=== PATIENT | female | born 1945 ===

== ENCOUNTER 2020-02-02 08:02 | Emergency (ER) | payer MEDICARE, OTHER, SELFPAY ==
[2020-02-02 08:11] VITALS: BP 159/84; PULSE 85; RESP 18; TEMP 36.8; O2SAT 100
--- NOTE | 2020-02-02 10:01 | ED.GENADULT ---
HPI - General Adult General Chief complaint: Unspecified Stated complaint: I want a covid test Time Seen by Provider: 02/02/20 08:19 History of Present Illness HPI narrative: Patient is a 74-year-old female who presents ER for Covid test. Patient is post to have brain surgery in a few days. The line to get a rapid Covid test was too long so she opted to drive here. She also did not realize that she could get her Covid test at the hospital where the original order was placed. She has no symptoms. Related Data Home Medications Medication Instructions Recorded Confirmed neomycin 3.5 mg-polymyxin 10,000 1 drop EACH EYE BID 02/07/19 01/30/20 unit-hydrocort 10 mg/mL eye drop,susp clopidogrel 75 mg tablet 75 mg PO DAILY 10/01/19 01/30/20 polyethylene glycol 3350 17 17 gm PO BID 10/01/19 01/30/20 gram/dose oral powder Allergies Allergy/AdvReac Type Severity Reaction Status Date / Time No Known Allergies Allergy Verified 02/02/20 08:14 Review of Systems Constitutional: Constitutional: Denies chills and Denies fever(s) Respiratory: Respiratory: Denies cough, Denies dyspnea and Denies wheezing PMFSH Past Medical History Medical History (Updated 02/02/20 @ 10:04 by Ashok Batres MD) CVA (cerebral vascular accident) Intracranial aneurysm with multiple congenital anomalies UTI (urinary tract infection) Family History Family History (Updated 08/22/18 @ 13:22 by DOCTOR UNKNOWN) Mother Patient's mother is , Onset Age: 82 Family history of dementia Father Acute myocardial infarction, Onset Age: 68 Social History Social History Smoking status: Former smoker Alcohol intake: never Exam Narrative: Exam Narrative: GENERAL: Well-appearing, well-nourished, and in no acute distress. HEAD: Normocephalic, atraumatic. EXTREMITIES: Normal range of motion. Normal strength. NEURO: Ambulates without issue. Alert and oriented x3. PSYCH: Normal mood and affect. Course Course Emergency Course: Patient swab for Covid. Discharge home. Vital Signs Vital signs: Vital Signs Temperature 98.2 F 02/02/20 08:11 Pulse Rate 85 02/02/20 08:11 Respiratory Rate 18 11/08/20 08:11 Blood Pressure 159/84 H 02/02/20 08:11 Pulse Oximetry 100 02/02/20 08:11 Temperature 98.2 F 02/02/20 08:11 Pulse Rate 85 02/02/20 08:11 Respiratory Rate 18 02/02/20 08:11 Blood Pressure 159/84 H 02/02/20 08:11 Pulse Oximetry 100 02/02/20 08:11 Medical Decision Making Vital Signs Vital Signs: Vital Signs Temperature 98.2 F 02/02/20 08:11 Pulse Rate 85 02/02/20 08:11 Respiratory Rate 18 02/02/20 08:11 Blood Pressure 159/84 H 02/02/20 08:11 Pulse Oximetry 100 02/02/20 08:11 Temperature 98.2 F 02/02/20 08:11 Pulse Rate 85 02/02/20 08:11 Respiratory Rate 18 02/02/20 08:11 Blood Pressure 159/84 H 02/02/20 08:11 Pulse Oximetry 100 02/02/20 08:11 Lab Data Labs: Lab Results 02/02/20 Range/Units 09:16 SARS-CoV-2 RNA (RT-PCR) Pending Discharge Plan Discharge Clinical Impression: Encounter for preprocedure screening laboratory testing for COVID-19 Patient Disposition: Home, Self-Care Condition: Stable Additional Instructions: You will need to call medical records to have your Covid results sent to your physician so that you can hopefully be cleared for surgery. Self quarantine at home until you receive your results. Prescriptions: No Action duloxetine [Cymbalta] 60 mg capsule,delayed release(DR/EC) 60 mg PO DAILY Qty: 90 RF: 3 zolpidem 10 mg tablet 10 mg PO .q hs PRN (Reason: insomnia) Qty: 90 RF: 1 levofloxacin 500 mg tablet 500 mg PO DAILY Qty: 5 RF: 0 famotidine 20 mg tablet 20 mg PO BID Qty: 180 RF: 3 clopidogrel [Plavix] 75 mg tablet 75 mg PO DAILY RF: 0 polyethylene glycol 3350 [Miralax] 17 gram/dose powder 17 g
[2020-02-02 21:18] LABS: SARS-CoV-2 RNA PCR Negative
== END 2020-02-02 10:09 | disposition home or self-care (01) ==
PROVIDERS: Emergency Provider Emergency Medicine; PCP Family Medicine
DX: Z01.812 Encounter for preprocedural laboratory examination (principal); Z20.828 Contact with and (suspected) exposure to other viral communicable diseases; Z86.73 Personal history of transient ischemic attack (TIA), and cerebral infarction without residual deficits; Z87.440 Personal history of urinary (tract) infections; Z87.891 Personal history of nicotine dependence
CPT/HCPCS: 87635; 99283; C9803; U0003

== ENCOUNTER 2021-10-29 09:55 | Outpatient (CLI) | payer MEDICARE, OTHER, SELFPAY | END 2021-10-29 09:56 | disposition home or self-care (01) | LOC: ANHLAB 09:58 | PROVIDERS: PCP Family Medicine; Visit Provider Nurse Practitioner Family | DX: Z22.322 Carrier or suspected carrier of Methicillin resistant Staphylococcus aureus (principal) | CPT/HCPCS: 87081 ==

== ENCOUNTER 2021-12-04 11:37 | Emergency (ER) | payer MEDICARE, OTHER, SELFPAY ==
[2021-12-04 11:44] VITALS: BP 135/92; PULSE 80; RESP 16; TEMP 36.9; O2SAT 97
--- NOTE | 2021-12-04 12:32 | ED.SKABFB ---
HPI - Skin/Abscess/Foreign Bdy General Chief complaint: Skin/Abscess/Foreign Body Stated complaint: SPIDER BITE Time Seen by Provider: 12/04/21 12:10 Source: patient, RN notes reviewed and old records reviewed Mode of arrival: ambulatory Limitations: no limitations History of Present Illness HPI narrative: 75-year-old female who presents to express care with complaints of lesion on her left lower inner forearm that she thinks could be a spider bite. Patient has circular round with central clearing lesion noted with no drainage or pustule formation to the left forearm, patient reports that skin is itchy and just noticed this yesterday MD complaint: lesion Onset (ago): day(s) (2) Treatments prior to arrival: other (cleaned with H2O2 applied Neosporin ointment) Related Data Home Medications Medication Instructions Recorded Confirmed ferrous sulfate 325 mg (65 mg 325 mg PO DAILY 04/05/21 12/04/21 iron) tablet polyethylene glycol 3350 17 17 g PO DAILY PRN constipation 04/05/21 12/04/21 gram/dose oral powder (Miralax) aspirin 325 mg tablet 325 mg PO DAILY 09/06/21 12/04/21 lansoprazole 15 mg capsule,delayed 15 mg PO DAILY 09/06/21 12/04/21 release (Prevacid 24Hr) melatonin 3 mg tablet 3 mg PO QHS 09/06/21 12/04/21 Allergies Allergy/AdvReac Type Severity Reaction Status Date / Time No Known Allergies Allergy Verified 12/04/21 12:06 Review of Systems Review of Systems: CONSTITUTIONAL: Denies fever, chills, or sweats. EYES: Denies visual changes, redness, or discharge. ENT: Denies rhinorrhea, congestion, sore throat, or otalgia. CARDIOVASCULAR: Denies chest pain, palpitations, or edema. RESPIRATORY: Denies cough or dyspnea. GASTROINTESTINAL: Denies abdominal pain, nausea, vomiting, or diarrhea. GENITOURINARY: Denies dysuria or hematuria. SKIN: Denies rash or itching. 2cm X2cm scaly red lesion with central clearing to left forearm is itchy MUSCULOSKELETAL: chronic back pain , no joint pain, or myalgia. NEUROLOGIC: Denies headache, numbness, or weakness. PSYCHIATRIC: Positive for history of anxiety or depression All systems reviewed & are unremarkable except as noted in HPI and below [facility] Past Medical History Medical History (Updated 12/05/21 @ 00:01 by Jose Romo) Abnormal fasting glucose Acute bronchitis Acute non-recurrent maxillary sinusitis Acute sinusitis, unspecified At high risk for falls Cellulitis COVID-19 (~04/21/20) COVID pneumonia 05/02/2019 [facility] . COVID antibody positive 06/01/2020 CVA (cerebral vascular accident) Edema, peripheral Encounter for preprocedure screening laboratory testing for COVID-19 Encounter for screening for other viral diseases Exposure to COVID-19 virus Folic acid deficiency Herpes zoster (09/03/21) left T2 dermatome Intracranial aneurysm with multiple congenital anomalies Otitis externa Pharyngitis Positive result for methicillin resistant Staphylococcus aureus (MRSA) screening (09/30/21) Renal insufficiency (09/2021) BUN 55, creatinine 1.6 with GFR 33 and potassium 5.5 on 10/15/2021. Repeat labs on 10/19/2021 reveal sodium 143, potassium 4.5, chloride 108, CO2 22, BUN 21, creatinine 1.14 with GFR 51 and glucose 107. Stage Zeynep non Hodgkin's lymphoma (~2020) Transfusion history (04/12/20) 2 units of packed red blood cells UTI (urinary tract infection) Yeast dermatitis Surgical History Surgical History (Updated 12/05/21 @ 23:06 by Nichelle Najera NP) H/O: hysterectomy History of right hip replacement Hx of brain surgery October 21 Family History Family History Mother Patient's mother is , Onset Age: 82 Family history of dementia Father Acute myocardial infarction, Onset Age: 68 Social History Social History Smoking status: Never smoker Alcohol intake: never Substance use: never Substance use
== END 2021-12-04 13:03 | disposition home or self-care (01) ==
PROVIDERS: Emergency Provider Registered Nurse; PCP Family Medicine
DX: B35.4 Tinea corporis (principal); Z85.72 Personal history of non-Hodgkin lymphomas; Z96.641 Presence of right artificial hip joint; Z86.16 Personal history of COVID-19
CPT/HCPCS: 99213; G0463